=== PATIENT | female | born 1955 | race Caucasian/White ===

== ENCOUNTER 2024-07-02 09:00 | Emergency (ER) | payer MEDICARE ==
[~2024-07-02] VITALS: Ht 171.4 cm; Wt 96.8 kg
[2024-07-02 11:35] VITALS: BP 149/82; PULSE 64; RESP 16; TEMP 98.1; O2SAT 95
== END 2024-07-02 11:39 | disposition home or self-care (01) ==
LOC: ER 09:02
DX: S50.11XA Contusion of right forearm, initial encounter (principal); S00.83XA Contusion of other part of head, initial encounter; S63.501A Unspecified sprain of right wrist, initial encounter; Z88.2 Allergy status to sulfonamides; W18.39XA Other fall on same level, initial encounter; Y93.89 Activity, other specified; Y92.89 Other specified places as the place of occurrence of the external cause; Y99.8 Other external cause status
CPT/HCPCS: 29125; 73080; 73090; 73110; 99284; L3908